=== PATIENT | male | born 1980 | race Caucasian/White ===

== ENCOUNTER → 2016-11-17 | Outpatient (CLI) | payer OTHER ==
--- NOTE | 2016-11-17 12:52 | RADRPT ---
EXAM DATE/TIME: 11/17/2016 10:58 [place] COMPARISON: No previous studies available for comparison. INDICATIONS : Right testicle mass. MEDICAL HISTORY : Diabetic. SURGICAL HISTORY : None. ENCOUNTER: Initial ACUITY: 2 weeks PAIN SCORE: 0/10 LOCATION: Bilateral testicle. MEASUREMENTS: RIGHT TESTICLE: 3.6 x 3.7 x 2.6cm LEFT TESTICLE: 3.8 x 3.3 x 2.9cm FINDINGS: RIGHT TESTICLE: Homogeneous echotexture without intra or extratesticular mass. Blood flow is symmetric and within no rmal limits. No hydrocele or varicocele. Epididymis is within normal limits. LEFT TESTICLE: Homogeneous echotexture without intra or extratesticular mass. Blood flow is symmetric and within no rmal limits. No hydrocele or varicocele. Epididymis is within normal limits. SCROTUM: Within normal limits. CONCLUSION: Normal examination. Shaka Johnson MD on November 17, 2016 at 12:49 Board Certified Radiologist. This report was verified electronically.
== END ==
LOC: HRAD 10:17
DX: N50.89 Other specified disorders of the male genital organs (principal)
CPT/HCPCS: 76870; 93975